=== PATIENT | female | born 1950 | race Caucasian/White ===

== ENCOUNTER → 2020-04-18 | Outpatient (CLI) | payer OTHER ==
[~2020-04-18] MED LIST: ALLERCLEAR10 MG PO; ANUSOL-HC CREAM30 GM PR; ASPIRIN EC81 MG PO; FISH OIL 1,0001 EACH PO; FLONASE 0.05% N16 GM; GLUCOPHAGE 500500 MG PO; LISINOPRIL10 MG PO; MAGNESIUM500 MG PO; PERCOCET 10-321 EACH PO; PROBIOTIC PO; PROVENTIL HFA 61 INH INH; SIMVASTATIN20 MG PO; SYNTHROID88 MCG PO; VITAMIN C 500500 MG PO; XARELTO10 MG PO; [UNRECOGNIZED DRUG - OTHER] PO
== END ==
LOC: US 09:03
DX: R09.89 Other specified symptoms and signs involving the circulatory and respiratory systems (principal); R01.1 Cardiac murmur, unspecified; I08.2 Rheumatic disorders of both aortic and tricuspid valves; I27.20 Pulmonary hypertension, unspecified
CPT/HCPCS: ECHO; 93306; 93979

== ENCOUNTER 2020-07-30 15:21 | Emergency (ER) | payer OTHER ==
[~2020-07-30 15:21] MED LIST changes: -ANUSOL-HC CREAM30 GM PR
[2020-07-30] MEDS ORDERED: ANUSOL-HC CREAM30 GM PR (16:41)
== END 2020-07-30 18:30 | disposition home or self-care (01) ==
LOC: ER1 15:21
DX: K64.9 Unspecified hemorrhoids (principal); E78.5 Hyperlipidemia, unspecified; E10.9 Type 1 diabetes mellitus without complications; Z90.49 Acquired absence of other specified parts of digestive tract; Z88.2 Allergy status to sulfonamides
CPT/HCPCS: 96372; 99283; J2270

== ENCOUNTER → 2021-05-14 | Outpatient (CLI) | payer OTHER ==
[~2021-05-14] MED LIST changes: +ANUSOL-HC CREAM30 GM PR
== END ==
LOC: KOH-I 13:46
DX: M25.512 Pain in left shoulder (principal); M25.511 Pain in right shoulder
CPT/HCPCS: 73030